=== PATIENT | female | born 1945 | race Hispanic/Latino ===

== ENCOUNTER 2017-01-03 12:32 | Outpatient (CLI) | payer MEDICARE, MEDICAID ==
[2017-01-03 13:20] LABS: Hematocrit 40.8 % (36.0-47.0); White Blood Cell (WBC) Count 7.3 thou/uL (4.8-10.8)
[2017-01-03 13:26] LABS: Prothrombin Time 14.8 SEC (12.0-14.7)
[2017-01-03 13:27] LABS: PTT 39.3 SEC (22.9-36.1)
[2017-01-03 13:57] LABS: ALT (SGPT) 9 U/L (8-55); AST (SGOT) 19 U/L (5-34); Alkaline Phosphatase 81 U/L (40-150); Anion Gap 15 mmol/L (10-20); BUN (Urea Nitrogen) 30 mg/dL (9.8-20.1); Bilirubin, Total 0.6 mg/dL (0.2-1.2); Calc. Creatinine Clearance 0 mL/min (70-130); Calcium 9.5 mg/dL (7.8-10.44); Carbon Dioxide 26 mmol/L (23-31); Chloride 102 mmol/L (98-107); Estimated GFR-MDRD 33; Globulin 3.9 g/dL (2.4-3.5); Protein, Total 7.9 g/dL (6.0-8.3)
== END 2017-01-03 12:33 | disposition home or self-care (01) ==
LOC: LABBT 12:32
PROVIDERS: ATTEND Internal Medicine Cardiovascular Disease
DX: Z01.818 Encounter for other preprocedural examination (principal)
CPT/HCPCS: 80053; 85027; 85610; 85730; 93005; 93010

== ENCOUNTER → 2017-01-06 | Day surgery (SDC) | payer MEDICARE, MEDICAID ==
[2017-01-03 12:52] VITALS: BMI 26.8
[~2017-01-06] MED LIST: Diazepam 5 MG TAB ONE; Iopamidol 370 76% 100 ML VIAL ONE
[2017-01-06 08:18] LABS: ALT (SGPT) 8 U/L (8-55); AST (SGOT) 15 U/L (5-34); Alkaline Phosphatase 61 U/L (40-150); Anion Gap 11 mmol/L (10-20); BUN (Urea Nitrogen) 34 mg/dL (9.8-20.1); Bilirubin, Total 0.6 mg/dL (0.2-1.2); Calc. Creatinine Clearance 32 mL/min (70-130); Calcium 9.1 mg/dL (7.8-10.44); Carbon Dioxide 25 mmol/L (23-31); Chloride 103 mmol/L (98-107); Cholesterol 202 mg/dl (< 200 Desired); Estimated GFR-MDRD 31; Globulin 3.6 g/dL (2.4-3.5); LDL Cholesterol, Calculated 155 mg/dL
--- NOTE | 2017-01-07 03:17 | DIS ---
DATE OF ADMISSION: 01/06/2017 DATE OF DISCHARGE: 01/06/2017 DISCHARGE DIAGNOSES: 1. Coronary artery disease. 2. History of coronary artery bypass surgery. 3. Hypertension. 4. Dyslipidemia. 5. Diabetes mellitus. HISTORY OF PRESENT ILLNESS: The patient is a pleasant 71-year-old woman with a history of coronary artery disease who presented with recurrent chest discomfort. The patient has previously undergone coronary artery bypass graft surgery x3. The patient reported having increasing chest discomfort. She underwent a PET scan, which revealed her to have evidence of lateral ischemia. HOSPITAL COURSE: On 01/06/2017, the patient underwent a left heart catheterization and she was foun d to have a 99% proximal LAD lesion. There was a 20% ostial circumflex lesion with a 70% OM lesion. There is diffuse distal disease in the left circumflex artery. The right coronary artery had a 70% proximal stenosis and a 70% mid stenosis. There is diffuse distal disease throughout the right lala nary artery and in the posterior descending artery. The saphenous vein graft to the first diagonal branch and right coronary artery were completely occluded. The saphenous vein graft to the LAD had a 20% proximal stenosis and 40% mid stenosis. The patient was felt to have diffuse coronary artery disease that would be best treated with medical therapy. The patient has recently started on Ranexa . The patient was discharged in stable condition. DISCHARGE MEDICATIONS: Lipitor 40 daily, Plavix 75 daily, HCTZ 12.5 daily, lisinopril 10 daily, met formin 1000 b.i.d. which will be held for 2 days, metoprolol XL 75 mg daily, Ranexa 500 b.i.d., [place] via 100 mg daily.
== END ==
LOC: CCL 06:32
PROVIDERS: ATTEND Internal Medicine Cardiovascular Disease
DX: I25.10 Atherosclerotic heart disease of native coronary artery without angina pectoris (principal); I10 Essential (primary) hypertension; E78.5 Hyperlipidemia, unspecified; E11.9 Type 2 diabetes mellitus without complications; Z79.82 Long term (current) use of aspirin; Z79.4 Long term (current) use of insulin; Z79.899 Other long term (current) drug therapy; Z95.1 Presence of aortocoronary bypass graft; Z95.5 Presence of coronary angioplasty implant and graft; Z86.73 Personal history of transient ischemic attack (TIA), and cerebral infarction without residual deficits; Z98.890 Other specified postprocedural states
CPT/HCPCS: 80053; 80061; 93455; C1769; 36415; J1644

== ENCOUNTER 2017-04-30 08:25 | Emergency (ER) | payer MEDICARE, MEDICAID ==
[2017-04-30 08:58] LABS: Bilirubin Negative (Negative); Blood, Urine Negative (Negative); Clarity CLEAR (Clear); Glucose, Urine (Dipstick) Negative (Negative); Leukocyte Negative (Negative); Nitrite Negative (Negative); Protein, Urine (Dipstick) Negative (Neg-Trace); Specific Gravity, Urine 1.011 (1.002-1.036)
[2017-04-30] MEDS ORDERED: Dextrose 50% Abboject 50 ML SYRINGE ONE (08:58)
[2017-04-30 09:03] LABS: #Eosinphils 0.2 thou/uL (0.0-0.7); #Lymphocytes 1.3 thou/uL (1.20-3.40); #Monocytes 0.6 thou/uL (0.11-0.59); %Basophils 0.3 % (0.0-1.0); %Eosinophils 2.2 % (0.0-10.0); %Lymphocytes 16.5 % (21.0-51.0); Mean Corpuscular HGB CONC 32.9 g/dL (32.0-36.0); Mean Corpuscular Hemoglobin 30.1 pg (27.0-31.0); Mean Corpuscular Volume 91.5 fl (81.0-99.0); Mean Platelet Volume 8.1 fL (7.4-10.4); Platelet Count 152 thou/uL (130-400); RBC Distribution Width 13.1 % (11.5-14.5); Red Blood Cell (RBC) Count 3.98 mill/uL (4.20-5.40); White Blood Cell (WBC) Count 8.1 thou/uL (4.8-10.8)
[2017-04-30 09:28] LABS: ALT (SGPT) 17 U/L (8-55); AST (SGOT) 25 U/L (5-34); Albumin 3.4 g/dL (3.4-4.8); Alkaline Phosphatase 61 U/L (40-150); Anion Gap 14 mmol/L (10-20); BUN (Urea Nitrogen) 23 mg/dL (9.8-20.1); Bilirubin, Total 0.7 mg/dL (0.2-1.2); Calc. Creatinine Clearance 0 mL/min (70-130); Calcium 8.8 mg/dL (7.8-10.44); Carbon Dioxide 24 mmol/L (23-31); Chloride 104 mmol/L (98-107); Estimated GFR-MDRD 49; Globulin 3.3 g/dL (2.4-3.5); Potassium 3.9 mmol/L (3.5-5.1); Protein, Total 6.7 g/dL (6.0-8.3); Sodium 138 mmol/L (136-145)
[2017-04-30 09:33] LABS: CKMB 3.3 ng/mL (0-6.6); Glucose 57 mg/dL (83-110); Troponin I Less than 0.010 ng/mL (< 0.028)
--- NOTE | 2017-04-30 09:59 | RAD ---
RADIOGRAPH CHEST 1 VIEW: HISTORY: 71-year-old female status post syncope. FINDINGS: The thoracic aorta is tortuous and ectatic. There is no evidence of air space density, pneumothorax, or pulmonary edema. The lateral costophrenic angles are sharp. There are sternotomy wires. There ar e surgical clips overlying the mediastinum. IMPRESSION: 1) No acute pulmonary findings. 2) Ectasia of thoracic aorta. 3) Status post coronary artery bypass graft surgery is evidence for coronary atherosclerotic disease. matias POS: [facility]
--- NOTE | 2017-04-30 10:22 | RAD ---
LEFT HIP 2 VIEWS: HISTORY: Trauma. Fall. COMPARISON: None. FINDINGS: No displaced fracture or malalignment. Mild enthesopathic changes of the greater trochanter. Modera te narrowing of the left hip joint. IMPRESSION: No acute fracture or malalignment. POS: [facility]
--- NOTE | 2017-04-30 10:23 | RAD ---
PELVIS ONE VIEW: History: Trauma. Comparison: None. FINDINGS: There is moderate narrowing of the left and mild narrowing of the right hip joints. There are femoral head and neck osteophytes bilaterally. No displaced fracture or malalignment. The arterial rings are intact. Mild narrowing of the pubic symphysis. SI joints are unremarkable. Mild narrowing at L4-5. IMPRESSION: No acute fracture or malalignment of the pelvis. POS: [facility]
--- NOTE | 2017-04-30 10:24 | CT ---
CT BRAIN NONCONTRAST: HISTORY: 71-year-old female status post acute head trauma from fall due to dizziness. FINDINGS: There is no midline shift or any other mass effect. There is no evidence of acute intracranial hemor rhage, large cortical infarct, obstructive hydrocephalus, or extraaxial fluid collection. The calvar ium is intact. IMPRESSION: 1. No acute intracranial findings. 2. Tiny right supraorbital frontal scalp contusion. matias Arcos POS: [facility]
== END 2017-04-30 12:15 | disposition home or self-care (01) ==
LOC: ERS 08:25
DX: E11.649 Type 2 diabetes mellitus with hypoglycemia without coma (principal); E78.5 Hyperlipidemia, unspecified; I10 Essential (primary) hypertension; Z79.899 Other long term (current) drug therapy; Z79.82 Long term (current) use of aspirin; Z79.84 Long term (current) use of oral hypoglycemic drugs
CPT/HCPCS: 36416; 70450; 71045; 72170; 80053; 81003; 82553; 84484; 85025; 93005; 96361; 96374

== ENCOUNTER 2018-05-11 12:10 | Outpatient (CLI) | payer MEDICARE, MEDICAID ==
--- NOTE | 2018-05-11 13:34 | RAD ---
RIGHT KNEE 4 VIEWS: HISTORY: Right knee pain. FINDINGS: Degenerative changes are seen most prominent in the medial tibiofemoral compartment. No fracture, di slocation, or boy destruction is identified. Surgical clips are noted in the soft tissues on the med ial aspect. IMPRESSION: Right knee osteoarthritis. POS: [facility]
--- NOTE | 2018-05-11 13:38 | RAD ---
LEFT KNEE 4 VIEWS: HISTORY: Left knee pain. FINDINGS: Moderate degenerative changes are seen most prominent in the medial tibiofemoral compartment. No fra cture, dislocation, or bony destruction is identified. Surgical clips are seen in the soft tissues. IMPRESSION: Left knee osteoarthritis. POS: [facility]
== END 2018-05-11 12:11 | disposition home or self-care (01) ==
LOC: BICRAD 12:10
PROVIDERS: ATTEND Family Medicine
DX: M25.561 Pain in right knee (principal); M25.562 Pain in left knee; M17.0 Bilateral primary osteoarthritis of knee

== ENCOUNTER 2018-09-19 17:01 | Emergency (ER) | payer MEDICARE, MEDICAID ==
[2018-09-19 17:37] LABS: #Eosinphils 0.3 thou/uL (0.0-0.7); #Monocytes 0.5 thou/uL (0.11-0.59); #Neutrophils 4.8 thou/uL (1.40-6.50); %Basophils 0.1 % (0.0-1.0); %Lymphocytes 14.7 % (21.0-51.0); %Monocytes 7.9 % (0.0-10.0); %Neutrophils 73.4 % (42.0-75.0); Hemoglobin 11.3 g/dL (12.0-16.0); Mean Corpuscular HGB CONC 33.6 g/dL (32.0-36.0); Mean Corpuscular Hemoglobin 31.2 pg (27.0-31.0); Mean Corpuscular Volume 92.8 fL (78.0-98.0); Mean Platelet Volume 8.1 fL (7.4-10.4); Platelet Count 149 thou/uL (130-400); RBC Distribution Width 12.6 % (11.5-14.5); Red Blood Cell (RBC) Count 3.61 mill/uL (4.20-5.40); White Blood Cell (WBC) Count 6.5 thou/uL (4.8-10.8)
[2018-09-19 17:58] LABS: ALT (SGPT) 140 U/L (8-55); AST (SGOT) 215 U/L (5-34); Albumin 3.4 g/dL (3.4-4.8); Alkaline Phosphatase 53 U/L (40-150); Anion Gap 13 mmol/L (10-20); BUN (Urea Nitrogen) 28 mg/dL (9.8-20.1); Bilirubin, Total 0.8 mg/dL (0.2-1.2); Calc. Creatinine Clearance 0 mL/min (70-130); Calcium 9.3 mg/dL (7.8-10.44); Carbon Dioxide 27 mmol/L (23-31); Chloride 103 mmol/L (98-107); Estimated GFR-MDRD 45; Globulin 3.1 g/dL (2.4-3.5); Glucose 143 mg/dL (83-110); Potassium 4.8 mmol/L (3.5-5.1); Protein, Total 6.5 g/dL (6.0-8.3); Sodium 138 mmol/L (136-145)
--- NOTE | 2018-09-19 18:21 | ULT ---
EXAM: Bilateral lower extremity venous duplex: Deep veins evaluated with color Doppler, spectral analysis, and compression. INDICATIONS: Bilateral lower extremity pain and edema. FINDINGS: Deep veins interrogated include common femoral vein, femoral vein, popliteal vein, and post erior tibial vein. These veins show normal compression and blood flow. No evidence of DVT. IMPRESSION: Negative Bilateral venous duplex exam.
[2018-09-19 18:53] LABS: HBSAg Index 0.33 S/CO (0-0.99); Hep B Surf Ag Non-Reactive S/CO (NonReactive)
[2018-09-19 18:54] LABS: Hep A IgM AB Non-Reactive (NonReactive); Hep A IgM S/CO 0.19 S/CO (0-0.79); Hep C IgG Ab Non-Reactive (NonReactive); Hep C Index 0.04 S/CO (0-0.79)
[2018-09-19 18:56] LABS: HBCM Index 0.06 S/CO (0-0.79); Hepatitis B Core IgM Abs Non-Reactive (NonReactive)
[2018-09-19 19:39] LABS: Bilirubin Small (Negative); Blood, Urine Negative (Negative); Clarity CLOUDY (Clear); Glucose, Urine (Dipstick) Negative (Negative); Leukocyte Small (Negative); Nitrite Negative (Negative); Protein, Urine (Dipstick) Negative (Neg-Trace); Specific Gravity, Urine 1.016 (1.002-1.036)
[2018-09-19 19:42] LABS: Bacteria/HPF 4+ HPF (None Seen); Hyaline Casts/LPF 0-3 HYALINE CAST LPF (0-3 Hyaline); Squamous Epithelial 0-3 HPF (0-3); WBC/HPF 0-3 HPF (0-3)
== END 2018-09-19 21:35 | disposition home or self-care (01) ==
LOC: ERS 17:01
DX: R53.1 Weakness (principal); E11.9 Type 2 diabetes mellitus without complications; E78.5 Hyperlipidemia, unspecified; I10 Essential (primary) hypertension; Z79.899 Other long term (current) drug therapy; Z79.82 Long term (current) use of aspirin
CPT/HCPCS: 80053; 80074; 81003; 81015; 85025; 93005; 93970

== ENCOUNTER 2019-01-11 12:56 | Outpatient (CLI) | payer MEDICARE, MEDICAID ==
--- NOTE | 2019-01-11 15:50 | MMO ---
Bilateral MAMMO Bilat Screen [facility]. CLINICAL HISTORY: Patient is 73 years old and is seen for screening. The patient has the following family history of breast cancer: sister, at age 45. The patient has no personal history of cancer. VIEWS: The views performed were: bilateral craniocaudal with tomosynthesis and bilateral mediolateral oblique with tomosynthesis. FILMS COMPARED: The present examination has been compared to prior imaging studies performed at 09/28/2013 and 01/09/2017. This study has been interpreted with the assistance of computer-aided detection. MAMMOGRAM FINDINGS: There are scattered fibroglandular densities. There are no suspicious masses, suspicious calcifications, or new areas of architectural distortion. IMPRESSION: THERE IS NO MAMMOGRAPHIC EVIDENCE OF MALIGNANCY. A ROUTINE FOLLOW-UP MAMMOGRAM IN 1 YEAR IS RECOMMENDED. THE RESULTS OF THIS EXAM WERE SENT TO THE PATIENT. ACR BI-RADS Category 1 - Negative MAMMOGRAPHY NOTE: 1. A negative mammogram report should not delay a biopsy if a dominant of clinically suspicious mass is present. 2. Approximately 10% to 15% of breast cancers are not detected by mammography. 3. Adenosis and dense breasts may obscure an underlying neoplasm. Reported by: PO ORTEGA MD Electonically Signed: [id number]
== END 2019-01-11 12:57 | disposition home or self-care (01) ==
LOC: BICMAMMO 12:56
PROVIDERS: ATTEND Family Medicine
DX: Z12.31 Encounter for screening mammogram for malignant neoplasm of breast (principal); Z80.3 Family history of malignant neoplasm of breast
CPT/HCPCS: 77063; 77067

== ENCOUNTER 2019-02-22 09:27 | Outpatient (CLI) | payer MEDICARE, MEDICAID ==
--- NOTE | 2019-02-22 10:09 | BD ---
DEXA BONE DENSITOMETRY: (Dual energy x-ray absorptiometry) DATE: 02/22/2019 HISTORY: 73-year old female for age-related, post-menopausal, osteoporosis screening. weight: 136 lbs height: 61 in. Age of menopause: 35 COMPARISON: None available. FINDINGS: The bone mineral density (BMD) is given in grams per square centimeter (g/cm2): LUMBAR SPINE: BMD (g/cm^2) T score Z score L1: 0.912 -0.7 1.3 L2: 0.996 -0.3 2.0 L3: 1.027 -0.5 1.9 L4: 1.126 0.6 3.0 Total: 1.020 -0.2 2.0 HIP: BMD (g/cm^2) T score Z score Femoral neck: 0.700 -1.3 0.5 Total: 0.845 -0.8 0.8 FRAX WHO fracture risk assessment tool: 10 year fracture risk* Major osteoporotic fracture: 16 % Hip fracture: 2.4 % Reported risk factors: US (), neck BMD = 0.700 (g/cm^2), BMI = 25.7, and previous fracture *Fracture probability is calculated for an untreated patient. Fracture probability may be lower if th e patient has received treatment. IMPRESSION: 1.) The mean bone mineral density of the lumbar spine is normal. Fracture risk is not increased. 2) The bone mineral density of the femoral neck is osteopenic. Fracture risk is increased.
== END 2019-02-22 09:28 | disposition home or self-care (01) ==
LOC: BICMAMMO 09:27
PROVIDERS: ATTEND Family Medicine
DX: Z13.820 Encounter for screening for osteoporosis (principal); Z00.00 Encounter for general adult medical examination without abnormal findings; Z78.0 Asymptomatic menopausal state; M85.859 Other specified disorders of bone density and structure, unspecified thigh
CPT/HCPCS: 77080

== ENCOUNTER 2020-02-08 09:49 | Emergency (ER) | payer MEDICARE, MEDICAID ==
[2020-02-08 18:24] LABS: SARS-CoV-2 MS2 Positive; SARS-CoV-2 N Gene Positive; SARS-CoV-2 S Gene Positive; SARS-CoV-2 by NAA DETECTED (NotDetected); SARS-CoV-2 orf1ab Positive
== END 2020-02-08 10:47 | disposition home or self-care (01) ==
LOC: ERS 09:49
DX: U07.1 COVID-19 (principal); E11.9 Type 2 diabetes mellitus without complications; E78.5 Hyperlipidemia, unspecified; E78.00 Pure hypercholesterolemia, unspecified; I10 Essential (primary) hypertension
CPT/HCPCS: 87635; 99283; U0003

== ENCOUNTER 2020-03-06 12:13 | Outpatient (CLI) | payer MEDICARE, MEDICAID ==
--- NOTE | 2020-03-06 13:46 | RAD ---
PA AND LATERAL VIEWS CHEST: Date: 03/06/2020 HISTORY: Other viral pneumonia. COMPARISON: 02/21/2020. FINDINGS: The heart size is normal. The aorta is tortuous. Changes of median sternotomy again seen. The lungs a re well expanded without lobar consolidation, pneumothoraces, or pleural effusions. IMPRESSION: No radiographic evidence of acute cardiopulmonary process. POS: [facility]
== END 2020-03-06 12:14 | disposition home or self-care (01) ==
LOC: BICRAD 12:13
PROVIDERS: ATTEND Family Medicine
DX: J12.89 Other viral pneumonia (principal)
CPT/HCPCS: 71046

== ENCOUNTER 2020-08-14 10:42 | Outpatient (CLI) | payer MEDICARE, MEDICAID | END 2020-08-14 10:43 | disposition home or self-care (01) | LOC: BICRAD 10:42 | PROVIDERS: ATTEND Family Medicine | DX: M25.552 Pain in left hip (principal); M25.562 Pain in left knee; M17.12 Unilateral primary osteoarthritis, left knee; M16.12 Unilateral primary osteoarthritis, left hip ==

== ENCOUNTER 2021-04-20 09:56 | Outpatient (CLI) | payer MEDICARE, MEDICAID | END 2021-04-20 09:57 | disposition home or self-care (01) | LOC: BICMAMMO 09:56 | PROVIDERS: ATTEND Family Medicine | DX: Z12.31 Encounter for screening mammogram for malignant neoplasm of breast (principal); Z13.820 Encounter for screening for osteoporosis; N95.9 Unspecified menopausal and perimenopausal disorder; Z80.3 Family history of malignant neoplasm of breast; M85.851 Other specified disorders of bone density and structure, right thigh | CPT/HCPCS: 77063; 77067; 77080 ==